=== PATIENT | female | born 1930 | race African-American/Black ===

== ENCOUNTER 2016-10-12 13:36 | Emergency (ER) | payer MEDICARE, OTHER ==
[~2016-10-12] VITALS: Ht 167.6 cm; Wt 64.5 kg
[~2016-10-12 13:36] MED LIST: ACET-784 PO; AMLO-512 PO; ASPI81TA2 PO; CARB1TAB14 PO; CHOL200016 PO; CYAN500 PO; DOCU250C91 PO; DOCU283E PR; GABA-531 PO; MOM30 PO; MULT-711 PO; NEBI5 PO; ONDA4TAB4 PO; PANT40TA PO; SENN8.6T90 PO; ZOLP5TAB2 PO
[2016-10-12] MEDS ORDERED: BARIUM SULFATE 0.1% SUSPENSION 450 ML BOTTLE PO ONE (15:00)
[2016-10-12 15:11] LABS: BASOPHILS % (AUTO) 0.4 % (0.0-2.0); EOSINOPHILS % (AUTO) 0.9 % (1.0-6.0); HEMATOCRIT 30.3 % (36-46); HEMOGLOBIN 9.6 g/dL (12.0-16.0); LYMPHOCYTES # (AUTO) 1.5 K/uL (1.0-4.8); LYMPHOCYTES % (AUTO) 18.5 % (22.0-44.0); MEAN CORPUSCULAR HEMOGLOBIN 29.5 pg (26.0-34.0); MEAN CORPUSCULAR HGB CONC 31.8 G/dL (31.0-37.0); MEAN CORPUSCULAR VOLUME 93 fL (80-100); MONOCYTES # (AUTO) 0.5 K/uL (0.1-1.0); MONOCYTES % (AUTO) 6.1 % (2.0-9.0); NEUTROPHILS # (AUTO) 5.8 K/uL (1.8-7.7); NEUTROPHILS % (AUTO) 74.1 % (40.0-70.0); PLATELET COUNT (AUTO) 211 K/uL (150-450); RED BLOOD CELL COUNT(AUTO) 3.27 MIL/uL (4.00-5.20); RED CELL DISTRIBUTION WIDTH 17.8 % (11.5-14.5); WHITE BLOOD COUNT (AUTO) 7.9 K/uL (4.5-11.0)
[2016-10-12 15:29] LABS: PROTHROMBIN TIME 10.7 SEC (9.4-11.6)
[2016-10-12 15:31] LABS: ANION GAP 2 mmol/L (8-16); CALCIUM, TOTAL 8.7 mg/dL (8.8-10.5); CARBON DIOXIDE 28 mmol/L (22-29); CHLORIDE 104 mmol/L (98-107); CREATININE 1.79 mg/dL (0.60-1.30); GLOMERULAR FILTR. RATE CALC 33 mL/min (>60); POTASSIUM 4.6 mmol/L (3.5-5.1); SODIUM SERUM 134 mmol/L (136-145); UREA NITROGEN, BLOOD 34 mg/dL (7-18)
[2016-10-12 15:35] LABS: ALBUMIN 3.4 g/dL (3.4-5.0); AMYLASE 79 U/L (25-115); ASPARTATE AMINOTRANSFERASE 15 U/L (15-37); BILIRUBIN,TOTAL 0.5 mg/dL (0.1-1.0); CREATINE KINASE, TOTAL 26 U/L (26-192); TOTAL PROTEIN, SERUM 7.1 g/dL (6.4-8.2)
[2016-10-12 15:58] LABS: RBC MORPHOLOGY COMMENT ABNORMAL RBC MORPH
[2016-10-12 16:17] LABS: ALANINE AMINOTRANSFERASE 7 U/L (12-78)
[2016-10-12 19:22] LABS: APPEARANCE,URINE CLEAR (CLEAR); GLUCOSE, URINE (UA) NEGATIVE (NEGATIVE); KETONES,URINE NEGATIVE (NEGATIVE); LEUKOCYTE ESTERASE ,URINE NEGATIVE (NEGATIVE); OCCULT BLOOD,URINE NEGATIVE (NEGATIVE); PH,URINE 5.5 (5.0-8.0); PROTEIN,URINE NEGATIVE (NEGATIVE)
[2016-10-12 19:26] LABS: ADD UA MICROSCOPIC NO
[2016-10-12 20:50] VITALS: BP 134/71
== END 2016-10-12 21:07 | disposition home or self-care (01) ==
LOC: EMS 13:39
DX: K43.9 Ventral hernia without obstruction or gangrene (principal); I10 Essential (primary) hypertension; Z88.0 Allergy status to penicillin; Z88.5 Allergy status to narcotic agent; Z79.82 Long term (current) use of aspirin
CPT/HCPCS: 74176; 93005; 99285

== ENCOUNTER 2016-10-21 10:32 | Inpatient (IN) | payer MEDICARE, OTHER ==
[~2016-10-21] VITALS: Ht 154.9 cm; Wt 67.4 kg
[2016-10-21 10:47] LABS: BASOPHILS % (AUTO) 0.4 % (0.0-2.0); EOSINOPHILS % (AUTO) 1.4 % (1.0-6.0); HEMATOCRIT 28.5 % (36-46); HEMOGLOBIN 9.3 g/dL (12.0-16.0); LYMPHOCYTES # (AUTO) 1.6 K/uL (1.0-4.8); LYMPHOCYTES % (AUTO) 27.4 % (22.0-44.0); MEAN CORPUSCULAR HEMOGLOBIN 29.8 pg (26.0-34.0); MEAN CORPUSCULAR HGB CONC 32.4 G/dL (31.0-37.0); MEAN CORPUSCULAR VOLUME 92 fL (80-100); MONOCYTES # (AUTO) 0.4 K/uL (0.1-1.0); MONOCYTES % (AUTO) 6.7 % (2.0-9.0); NEUTROPHILS # (AUTO) 3.8 K/uL (1.8-7.7); NEUTROPHILS % (AUTO) 64.1 % (40.0-70.0); PLATELET COUNT (AUTO) 217 K/uL (150-450); RED CELL DISTRIBUTION WIDTH 17.6 % (11.5-14.5); WHITE BLOOD COUNT (AUTO) 5.9 K/uL (4.5-11.0)
[2016-10-21 10:48] LABS: RBC MORPHOLOGY COMMENT ABNORMAL RBC MORPH
[2016-10-21] MEDS ORDERED: IOVERSOL 350 MG/ML 100 ML VIAL ONE (10:51)
[2016-10-21] MEDS ORDERED: SODIUM CHLORIDE 0.9% 100 ML ONE (10:51)
[2016-10-21 10:53] LABS: ANION GAP 9 mmol/L (8-16); CALCIUM, TOTAL 9.2 mg/dL (8.8-10.5); CARBON DIOXIDE 27 mmol/L (22-29); CHLORIDE 108 mmol/L (98-107); CREATININE 1.79 mg/dL (0.60-1.30); GLOMERULAR FILTR. RATE CALC 33 mL/min (>60); POTASSIUM 5.2 mmol/L (3.5-5.1); SODIUM SERUM 144 mmol/L (136-145); UREA NITROGEN, BLOOD 46 mg/dL (7-18)
[2016-10-21 10:59] LABS: PROTHROMBIN TIME 10.7 SEC (9.4-11.6)
[2016-10-21 11:00] LABS: ALANINE AMINOTRANSFERASE 7 U/L (12-78); ALBUMIN 3.6 g/dL (3.4-5.0); ASPARTATE AMINOTRANSFERASE 16 U/L (15-37); BILIRUBIN,TOTAL 0.6 mg/dL (0.1-1.0); CREATINE KINASE, TOTAL 24 U/L (26-192); TOTAL PROTEIN, SERUM 7.5 g/dL (6.4-8.2)
[2016-10-21 12:17] LABS: GLUCOSE,POINT OF CARE 55 MG/DL (70-110)
[2016-10-21 12:17] LABS: GLUCOSE, URINE (UA) NEGATIVE (NEGATIVE); KETONES,URINE NEGATIVE (NEGATIVE); LEUKOCYTE ESTERASE ,URINE SMALL (NEGATIVE); OCCULT BLOOD,URINE MODERATE (NEGATIVE); PH,URINE 5.5 (5.0-8.0); PROTEIN,URINE NEGATIVE (NEGATIVE)
[2016-10-21 12:18] LABS: ADD UA MICROSCOPIC YES; APPEARANCE,URINE HAZY (CLEAR)
[2016-10-21 12:20] LABS: SQUAMOUS EPITHELIAL CELL,UR Few /LPF (None Seen)
[2016-10-21] MEDS ORDERED: ONDANSETRON HCL 4 MG/2 ML VIAL IVP PRN (12:30)
[2016-10-21] MEDS ORDERED: ACETAMINOPHEN 325 MG TABLET PO PRN ×2 (12:30→13:45)
[2016-10-21] MEDS ORDERED: ASPIRIN 81 MG CHEWABLE TABLET PO ONE (12:30)
[2016-10-21 13:17] LABS: GLUCOSE,POINT OF CARE 84 MG/DL (70-110)
[2016-10-21] MEDS ORDERED: ONDANSETRON HCL 4 MG TABLET PO PRN (13:45)
[2016-10-21] MEDS ORDERED: ZOLPIDEM TARTRATE 5 MG TABLET PO PRN (13:45)
[2016-10-21] MEDS ORDERED: DOCUSATE SODIUM 283 MG/5 ML MINI-ENEMA PR PRN (13:45)
[2016-10-21] MEDS ORDERED: MAGNESIUM HYDROXIDE SUSPENSION 30 ML UDCUP PO PRN (13:45)
[2016-10-21 15:02] LABS: GLUCOSE,POINT OF CARE 71 MG/DL (70-110)
[2016-10-21] MEDS: CARBIDOPA/LEVODOPA 25-100 MG TABLET PO SCH ×2 (17:19→21:57)
[2016-10-21 18:51] VITALS: BP 118/71
[2016-10-21 19:50] VITALS: BP 120/70
[2016-10-21] MEDS: SENNA 187 MG TABLET PO SCH (21:51)
[2016-10-21] MEDS: DOCUSATE SODIUM 250 MG CAPSULE PO SCH (21:54)
[2016-10-21] MEDS: CHOLECALCIFEROL (VIT D3) 2,000 UNITS TABLET PO SCH (21:56)
[2016-10-21] MEDS: GABAPENTIN 300 MG CAPSULE PO SCH (21:56)
[2016-10-21] MEDS: HEPARIN SODIUM,PORCINE 5,000 UNITS/ML VIAL SQ SCH (21:58)
[2016-10-22] VITALS (7 sets, daily range): BP systolic 111–140; BP diastolic 62–77
[2016-10-22 06:40] LABS: BASOPHILS # (AUTO) 0.02 K/uL (0.00-0.20); BASOPHILS % (AUTO) 0.3 % (0.0-2.0); EOSINOPHILS # (AUTO) 0.11 K/uL (0.00-0.70); EOSINOPHILS % (AUTO) 1.84 % (1.0-6.0); HEMATOCRIT 26.5 % (36-46); HEMOGLOBIN 8.6 g/dL (12.0-16.0); MEAN CORPUSCULAR HEMOGLOBIN 30.2 pg (26.0-34.0); MEAN CORPUSCULAR HGB CONC 32.4 G/dL (31.0-37.0); MEAN CORPUSCULAR VOLUME 93 fL (80-100); MONOCYTES # (AUTO) 0.4 K/uL (0.1-1.0); MONOCYTES % (AUTO) 6.1 % (2.0-9.0); NEUTROPHILS # (AUTO) 4.3 K/uL (1.8-7.7); NEUTROPHILS % (AUTO) 73.8 % (40.0-70.0); PLATELET COUNT (AUTO) 203 K/uL (150-450); RED BLOOD CELL COUNT(AUTO) 2.84 MIL/uL (4.00-5.20); RED CELL DISTRIBUTION WIDTH 17.9 % (11.5-14.5); WHITE BLOOD COUNT (AUTO) 5.8 K/uL (4.5-11.0)
[2016-10-22 07:14] LABS: ANION GAP 8 mmol/L (8-16); CALCIUM, TOTAL 8.7 mg/dL (8.8-10.5); CARBON DIOXIDE 27 mmol/L (22-29); CHLORIDE 108 mmol/L (98-107); CHOL/HDL RATIO 3.8 (3.9-5.7); CREATINE KINASE, TOTAL 29 U/L (26-192); CREATININE 1.72 mg/dL (0.60-1.30); GLOMERULAR FILTR. RATE CALC 34 mL/min (>60); PHOSPHORUS 4.3 mg/dL (2.5-4.9); POTASSIUM 4.9 mmol/L (3.5-5.1); SODIUM SERUM 143 mmol/L (136-145); UREA NITROGEN, BLOOD 46 mg/dL (7-18)
[2016-10-22 08:43] LABS: HEMOGLOBIN A1C < 3.6 % (4.5-6.2)
[2016-10-22] MEDS: CHOLECALCIFEROL (VIT D3) 2,000 UNITS TABLET PO SCH ×2 (08:48→20:31)
[2016-10-22] MEDS: PANTOPRAZOLE SODIUM 40 MG DR TABLET PO SCH (08:48)
[2016-10-22] MEDS: DOCUSATE SODIUM 250 MG CAPSULE PO SCH ×2 (08:48→20:28)
[2016-10-22] MEDS: MULTIVITAMINS, THERAPEUTIC TABLET PO SCH (08:48)
[2016-10-22] MEDS: ASPIRIN 81 MG CHEWABLE TABLET PO SCH (08:48)
[2016-10-22] MEDS: CYANOCOBALAMIN 500 MCG TABLET PO SCH (08:49)
[2016-10-22] MEDS: CARBIDOPA/LEVODOPA 25-100 MG TABLET PO SCH ×4 (08:49→20:29)
[2016-10-22] MEDS: NEBIVOLOL HCL 5 MG TABLET PO SCH (08:49)
[2016-10-22] MEDS: HEPARIN SODIUM,PORCINE 5,000 UNITS/ML VIAL SQ SCH ×2 (08:49→20:30)
[2016-10-22 09:16] LABS: RBC MORPHOLOGY COMMENT ABNORMAL RBC MORPH
[2016-10-22 11:35] LABS: VITAMIN B12 LEVEL > 2000 pg/mL (211-911)
[2016-10-22] MEDS: LEVOFLOXACIN 250 MG/D5% WATER 50 ML IV SCH (13:17)
[2016-10-22] MEDS: GABAPENTIN 300 MG CAPSULE PO SCH (20:29)
[2016-10-22] MEDS: SENNA 187 MG TABLET PO SCH (20:29)
[2016-10-23 00:19] VITALS: BP 117/86
[2016-10-23 04:11] VITALS: BP 115/85
[2016-10-23 07:37] VITALS: BP 142/81
[2016-10-23 08:05] LABS: BASOPHILS % (AUTO) 0.4 % (0.0-2.0); EOSINOPHILS % (AUTO) 1.7 % (1.0-6.0); HEMATOCRIT 27.3 % (36-46); HEMOGLOBIN 8.8 g/dL (12.0-16.0); LYMPHOCYTES # (AUTO) 0.9 K/uL (1.0-4.8); LYMPHOCYTES % (AUTO) 14.4 % (22.0-44.0); MEAN CORPUSCULAR HEMOGLOBIN 29.9 pg (26.0-34.0); MEAN CORPUSCULAR HGB CONC 32.1 G/dL (31.0-37.0); MEAN CORPUSCULAR VOLUME 93 fL (80-100); MONOCYTES # (AUTO) 0.4 K/uL (0.1-1.0); MONOCYTES % (AUTO) 5.5 % (2.0-9.0); NEUTROPHILS # (AUTO) 5.1 K/uL (1.8-7.7); PLATELET COUNT (AUTO) 204 K/uL (150-450); RED BLOOD CELL COUNT(AUTO) 2.93 MIL/uL (4.00-5.20); WHITE BLOOD COUNT (AUTO) 6.6 K/uL (4.5-11.0)
[2016-10-23 08:16] LABS: CALCIUM, TOTAL 8.9 mg/dL (8.8-10.5); CREATININE 1.66 mg/dL (0.60-1.30); POTASSIUM 4.9 mmol/L (3.5-5.1)
[2016-10-23] MEDS: LEVOFLOXACIN 250 MG/D5% WATER 50 ML IV SCH (08:33)
[2016-10-23] MEDS: HEPARIN SODIUM,PORCINE 5,000 UNITS/ML VIAL SQ SCH ×2 (08:34→21:06)
[2016-10-23] MEDS: CHOLECALCIFEROL (VIT D3) 2,000 UNITS TABLET PO SCH ×2 (08:34→21:05)
[2016-10-23] MEDS: PANTOPRAZOLE SODIUM 40 MG DR TABLET PO SCH (08:34)
[2016-10-23] MEDS: DOCUSATE SODIUM 250 MG CAPSULE PO SCH ×2 (08:34→21:06)
[2016-10-23] MEDS: NEBIVOLOL HCL 5 MG TABLET PO SCH (08:34)
[2016-10-23] MEDS: CYANOCOBALAMIN 500 MCG TABLET PO SCH (08:34)
[2016-10-23] MEDS: MULTIVITAMINS, THERAPEUTIC TABLET PO SCH (08:34)
[2016-10-23] MEDS: CARBIDOPA/LEVODOPA 25-100 MG TABLET PO SCH ×4 (08:34→21:06)
[2016-10-23] MEDS: ASPIRIN 81 MG CHEWABLE TABLET PO SCH (09:00)
[2016-10-23 11:06] LABS: RBC MORPHOLOGY COMMENT ABNORMAL RBC MORPH
[2016-10-23 11:20] VITALS: BP 132/77
[2016-10-23] MEDS ORDERED: 0.9% SODIUM CHLORIDE 10 ML SYRINGE IVP PRN (15:45)
[2016-10-23 15:57] VITALS: BP 125/71
[2016-10-23] MEDS: EPOETIN ALFA 10,000 UNITS/ML VIAL SQ SCH (17:28)
[2016-10-23 20:30] VITALS: BP 111/69
[2016-10-23] MEDS: SENNA 187 MG TABLET PO SCH (21:05)
[2016-10-23] MEDS: GABAPENTIN 300 MG CAPSULE PO SCH (21:05)
[2016-10-24 00:28] VITALS: BP 115/66
[2016-10-24 04:48] VITALS: BP 105/62
[2016-10-24 07:34] VITALS: BP 126/66
[2016-10-24 07:43] LABS: BASOPHILS % (AUTO) 0.7 % (0.0-2.0); HEMATOCRIT 25.9 % (36-46); HEMOGLOBIN 8.4 g/dL (12.0-16.0); LYMPHOCYTES # (AUTO) 1.2 K/uL (1.0-4.8); LYMPHOCYTES % (AUTO) 16.7 % (22.0-44.0); MEAN CORPUSCULAR HGB CONC 32.5 G/dL (31.0-37.0); MEAN CORPUSCULAR VOLUME 92 fL (80-100); MONOCYTES # (AUTO) 0.4 K/uL (0.1-1.0); MONOCYTES % (AUTO) 5.1 % (2.0-9.0); NEUTROPHILS # (AUTO) 5.5 K/uL (1.8-7.7); NEUTROPHILS % (AUTO) 75.5 % (40.0-70.0); RED CELL DISTRIBUTION WIDTH 18.3 % (11.5-14.5); WHITE BLOOD COUNT (AUTO) 7.3 K/uL (4.5-11.0)
[2016-10-24 07:53] LABS: PLATELET COUNT (AUTO) 203 K/uL (150-450)
[2016-10-24 08:06] LABS: CALCIUM, TOTAL 8.9 mg/dL (8.8-10.5); CREATININE 1.95 mg/dL (0.60-1.30); MAGNESIUM 2.7 mg/dL (1.80-2.40); PHOSPHORUS 4.9 mg/dL (2.5-4.9); POTASSIUM 5.4 mmol/L (3.5-5.1)
[2016-10-24 08:44] LABS: RBC MORPHOLOGY COMMENT ABNORMAL RBC MORPH
[2016-10-24] MEDS ORDERED: SODIUM POLYSTYRENE SULFONATE 15 GM/60 ML SUSPENSION BOTTLE PO PRN (08:45)
[2016-10-24] MEDS: SODIUM CHLORIDE 0.9% 1,000 ML IV SCH (09:35)
[2016-10-24] MEDS: HEPARIN SODIUM,PORCINE 5,000 UNITS/ML VIAL SQ SCH ×2 (09:35→21:08)
[2016-10-24] MEDS: MULTIVITAMINS, THERAPEUTIC TABLET PO SCH (09:35)
[2016-10-24] MEDS: LEVOFLOXACIN 250 MG/D5% WATER 50 ML IV SCH (09:35)
[2016-10-24] MEDS: PANTOPRAZOLE SODIUM 40 MG DR TABLET PO SCH (09:36)
[2016-10-24] MEDS: DOCUSATE SODIUM 250 MG CAPSULE PO SCH ×2 (09:36→21:08)
[2016-10-24] MEDS: ASPIRIN 81 MG CHEWABLE TABLET PO SCH (09:36)
[2016-10-24] MEDS: CYANOCOBALAMIN 500 MCG TABLET PO SCH (09:37)
[2016-10-24] MEDS: CARBIDOPA/LEVODOPA 25-100 MG TABLET PO SCH ×4 (09:37→21:08)
[2016-10-24] MEDS: CHOLECALCIFEROL (VIT D3) 2,000 UNITS TABLET PO SCH ×2 (09:37→21:07)
[2016-10-24] MEDS: NEBIVOLOL HCL 5 MG TABLET PO SCH (09:38)
[2016-10-24] MEDS: IPRATROPIUM BROMIDE 0.5 MG/2.5 ML NEB SOLUTION NEB PRN (10:17)
[2016-10-24] MEDS: ALBUTEROL SULFATE 2.5 MG/0.5 ML NEB SOLUTION NEB PRN (10:17)
[2016-10-24 11:09] VITALS: BP 108/76
[2016-10-24 16:04] VITALS: BP 116/67
[2016-10-24 16:09] LABS: CALCIUM, TOTAL 8.6 mg/dL (8.8-10.5); CREATININE 2.05 mg/dL (0.60-1.30); POTASSIUM 5.4 mmol/L (3.5-5.1)
[2016-10-24 19:55] VITALS: BP 96/51
[2016-10-24] MEDS: GABAPENTIN 300 MG CAPSULE PO SCH (21:07)
[2016-10-24] MEDS: SENNA 187 MG TABLET PO SCH (21:08)
[2016-10-25 00:17] VITALS: BP 135/62
[2016-10-25] MEDS: SODIUM CHLORIDE 0.9% 1,000 ML IV SCH ×2 (00:44→11:10)
[2016-10-25 04:21] VITALS: BP 108/61
[2016-10-25] MEDS ORDERED: LEVO250T2 PO (07:08)
[2016-10-25 07:12] LABS: CALCIUM, TOTAL 8.6 mg/dL (8.8-10.5); CREATININE 2.07 mg/dL (0.60-1.30); POTASSIUM 5.3 mmol/L (3.5-5.1)
[2016-10-25 07:15] VITALS: BP 135/76
[2016-10-25] MEDS: LEVOFLOXACIN 250 MG/D5% WATER 50 ML IV SCH (09:04)
[2016-10-25] MEDS: DOCUSATE SODIUM 250 MG CAPSULE PO SCH (09:07)
[2016-10-25] MEDS: PANTOPRAZOLE SODIUM 40 MG DR TABLET PO SCH (09:07)
[2016-10-25] MEDS: ASPIRIN 81 MG CHEWABLE TABLET PO SCH (09:07)
[2016-10-25] MEDS: MULTIVITAMINS, THERAPEUTIC TABLET PO SCH (09:07)
[2016-10-25] MEDS: NEBIVOLOL HCL 5 MG TABLET PO SCH (09:08)
[2016-10-25] MEDS: CYANOCOBALAMIN 500 MCG TABLET PO SCH (09:08)
[2016-10-25] MEDS: HEPARIN SODIUM,PORCINE 5,000 UNITS/ML VIAL SQ SCH (09:11)
[2016-10-25] MEDS: CHOLECALCIFEROL (VIT D3) 2,000 UNITS TABLET PO SCH (09:11)
[2016-10-25] MEDS: EPOETIN ALFA 10,000 UNITS/ML VIAL SQ SCH (09:12)
[2016-10-25] MEDS: CARBIDOPA/LEVODOPA 25-100 MG TABLET PO SCH ×3 (09:13→16:00)
[2016-10-25 11:16] VITALS: BP 127/64
[2016-10-25] MEDS: IPRATROPIUM BROMIDE 0.5 MG/2.5 ML NEB SOLUTION NEB PRN (11:16)
[2016-10-25] MEDS: ALBUTEROL SULFATE 2.5 MG/0.5 ML NEB SOLUTION NEB PRN (11:16)
[2016-10-25 16:06] VITALS: BP 107/83
== END 2016-10-25 16:50 | DRG 69 ==
LOC: EMS 10:34 → 5S 16:44
PROVIDERS: ADMIT Internal Medicine Geriatric Medicine; ATTEND Internal Medicine Geriatric Medicine
DX: G45.9 Transient cerebral ischemic attack, unspecified (principal); E46 Unspecified protein-calorie malnutrition; N39.0 Urinary tract infection, site not specified; I69.351 Hemiplegia and hemiparesis following cerebral infarction affecting right dominant side; N17.9 Acute kidney failure, unspecified; N18.3 Chronic kidney disease, stage 3 (moderate); I12.9 Hypertensive chronic kidney disease with stage 1 through stage 4 chronic kidney disease, or unspecified chronic kidney disease; D63.1 Anemia in chronic kidney disease; I25.10 Atherosclerotic heart disease of native coronary artery without angina pectoris; M19.90 Unspecified osteoarthritis, unspecified site; G20 Parkinson's disease; E55.9 Vitamin D deficiency, unspecified; E02 Subclinical iodine-deficiency hypothyroidism; E87.5 Hyperkalemia; I73.9 Peripheral vascular disease, unspecified; I69.320 Aphasia following cerebral infarction; R53.81 Other malaise; Z88.0 Allergy status to penicillin; Z88.5 Allergy status to narcotic agent; Z79.899 Other long term (current) drug therapy; Z79.82 Long term (current) use of aspirin; Z96.649 Presence of unspecified artificial hip joint; Z96.659 Presence of unspecified artificial knee joint; Z95.5 Presence of coronary angioplasty implant and graft; Z68.28 Body mass index [BMI] 28.0-28.9, adult; Z87.81 Personal history of (healed) traumatic fracture; Z86.718 Personal history of other venous thrombosis and embolism; Z85.42 Personal history of malignant neoplasm of other parts of uterus; Z82.49 Family history of ischemic heart disease and other diseases of the circulatory system
CPT/HCPCS: 51702; 70496; 70551; 76770; 82306; 82570; 82607; 82746; 82962; 83036; 83540; 83550; 83735; 84100; 84156; 84300; 84439; 84443; 84540; 86592; 87086; 92526; 92610; 93005; 93306; 94060; 94640; 97163; 97166; 97530; 97535; 99291; J0885; J1644; J1956; J7030; J7050

== ENCOUNTER 2016-11-04 06:32 | Inpatient (IN) | payer MEDICARE, OTHER ==
[~2016-11-04] VITALS: Ht 152.4 cm; Wt 76.1 kg
[2016-11-04] VITALS (9 sets, daily range): BP systolic 78–115; BP diastolic 45–72
[~2016-11-04 06:32] MED LIST changes: +LEVO250T2 PO; -ZOLP5TAB2 PO
[2016-11-04 06:52] LABS: GLUCOSE,POINT OF CARE 90 MG/DL (70-110)
[2016-11-04] MEDS ORDERED: AMIN30LI24 PO (06:52)
[2016-11-04] MEDS ORDERED: ASCO500T24 PO (06:52)
[2016-11-04] MEDS ORDERED: SODIUM CHLORIDE 0.9% 1,000 ML IV ONE ×2 (07:00→10:15)
[2016-11-04 07:44] LABS: BASOPHILS # (AUTO) 0.01 K/uL (0.00-0.20); BASOPHILS % (AUTO) 0.2 % (0.0-2.0); EOSINOPHILS # (AUTO) 0.02 K/uL (0.00-0.70); EOSINOPHILS % (AUTO) 0.23 % (1.0-6.0); HEMATOCRIT 25.2 % (36-46); HEMOGLOBIN 8.2 g/dL (12.0-16.0); LYMPHOCYTES # (AUTO) 0.5 K/uL (1.0-4.8); LYMPHOCYTES % (AUTO) 6.7 % (22.0-44.0); MEAN CORPUSCULAR HEMOGLOBIN 30.3 pg (26.0-34.0); MEAN CORPUSCULAR HGB CONC 32.4 G/dL (31.0-37.0); MEAN CORPUSCULAR VOLUME 94 fL (80-100); MONOCYTES # (AUTO) 0.4 K/uL (0.1-1.0); MONOCYTES % (AUTO) 4.7 % (2.0-9.0); PLATELET COUNT (AUTO) 209 K/uL (150-450); RED BLOOD CELL COUNT(AUTO) 2.69 MIL/uL (4.00-5.20); RED CELL DISTRIBUTION WIDTH 19.5 % (11.5-14.5); WHITE BLOOD COUNT (AUTO) 7.9 K/uL (4.5-11.0)
[2016-11-04] MEDS ORDERED: CefTAZidime PENTAHYDRATE 1 GM in DEXTROSE 5%-WATER 50 ML IV ONE (07:45)
[2016-11-04] MEDS ORDERED: LEVOFLOXACIN 500 MG/D5% WATER 100 ML IV ONE (07:45)
[2016-11-04 07:48] LABS: NEUTROPHILS % (AUTO) 88.2 % (40.0-70.0); RBC MORPHOLOGY COMMENT ABNORMAL RBC MORPH
[2016-11-04 08:04] LABS: ALANINE AMINOTRANSFERASE 9 U/L (12-78); ALBUMIN 3.1 g/dL (3.4-5.0); ANION GAP 13 mmol/L (8-16); ASPARTATE AMINOTRANSFERASE 19 U/L (15-37); BILIRUBIN,TOTAL 0.5 mg/dL (0.1-1.0); CALCIUM, TOTAL 9.1 mg/dL (8.8-10.5); CARBON DIOXIDE 23 mmol/L (22-29); CHLORIDE 103 mmol/L (98-107); CREATINE KINASE, TOTAL 40 U/L (26-192); GLOMERULAR FILTR. RATE CALC 16 mL/min (>60); PROTHROMBIN TIME 10.3 SEC (9.4-11.6); SODIUM SERUM 139 mmol/L (136-145); TOTAL PROTEIN, SERUM 7.4 g/dL (6.4-8.2)
[2016-11-04 08:05] LABS: APPEARANCE,URINE CLOUDY (CLEAR); GLUCOSE, URINE (UA) NEGATIVE (NEGATIVE); KETONES,URINE NEGATIVE (NEGATIVE); LEUKOCYTE ESTERASE ,URINE MODERATE (NEGATIVE); OCCULT BLOOD,URINE NEGATIVE (NEGATIVE); PROTEIN,URINE NEGATIVE (NEGATIVE)
[2016-11-04 08:07] LABS: ADD UA MICROSCOPIC YES
[2016-11-04 08:09] LABS: RBC,URINE 0-2 /HPF (0-2); SQUAMOUS EPITHELIAL CELL,UR Moderate /LPF (None Seen)
[2016-11-04 08:13] LABS: TROPONIN I < 0.02 ng/mL (0.00-0.05)
[2016-11-04 08:17] LABS: UREA NITROGEN, BLOOD 110 mg/dL (7-18)
[2016-11-04 08:30] LABS: AMMONIA 10 umol/L (11-32)
[2016-11-04] MEDS ORDERED: CALCIUM GLUCONATE 1,000 MG in DEXTROSE 5%-WATER 50 ML IV ONE (08:30)
[2016-11-04] MEDS ORDERED: DEXTROSE 50%-WATER 25 GM/50 ML SYRINGE IVP ONE (08:30)
[2016-11-04] MEDS ORDERED: INSULIN REGULAR, HUMAN 100 UNITS/ML IVP ONE (08:30)
[2016-11-04] MEDS ORDERED: SODIUM BICARBONATE [ADULT] 8.4% 50 MEQ/50 ML SYRINGE IVP ONE (08:30)
[2016-11-04] MEDS ORDERED: ONDANSETRON HCL 4 MG/2 ML VIAL IVP PRN (08:45)
[2016-11-04] MEDS ORDERED: HEPARIN SODIUM,PORCINE 5,000 UNITS/ML VIAL SQ SCH (08:45)
[2016-11-04] MEDS ORDERED: ZOLPIDEM TARTRATE 5 MG TABLET PO PRN (08:45)
[2016-11-04] MEDS ORDERED: IPRATROPIUM BROMIDE 0.5 MG/2.5 ML NEB SOLUTION NEB PRN (08:45)
[2016-11-04] MEDS ORDERED: ALBUTEROL SULFATE 2.5 MG/0.5 ML NEB SOLUTION NEB PRN (08:45)
[2016-11-04] MEDS ORDERED: BISACODYL 10 MG RECTAL RECTAL SUPPOSITORY PR PRN (08:45)
[2016-11-04] MEDS ORDERED: MAGNESIUM HYDROXIDE SUSPENSION 30 ML UDCUP PO PRN (08:45)
[2016-11-04] MEDS: PANTOPRAZOLE SODIUM 40 MG/VIAL IVP SCH (09:16)
[2016-11-04] MEDS: HEPARIN SODIUM,PORCINE 5,000 UNITS/ML VIAL SQ SCH ×2 (09:18→20:43)
[2016-11-04 09:22] LABS: GLUCOSE,POINT OF CARE 100 MG/DL (70-110)
[2016-11-04] MEDS ORDERED: *CLINICAL-LEVOFLOXACIN IVPB DOSING CLINICAL ONE ×2 (11:30)
[2016-11-04] MEDS ORDERED: SODIUM CHLORIDE 0.45% 1,000 ML IV SCH (11:30)
[2016-11-04 14:25] LABS: CALCIUM, TOTAL 8.8 mg/dL (8.8-10.5); CREATININE 3.13 mg/dL (0.60-1.30); MAGNESIUM 2.8 mg/dL (1.80-2.40); PHOSPHORUS 5.3 mg/dL (2.5-4.9); POTASSIUM 5.6 mmol/L (3.5-5.1)
[2016-11-04] MEDS: SODIUM CHLORIDE 0.9% 1,000 ML IV SCH (15:42)
[2016-11-04] MEDS: MetroNIDAZOLE 250 MG/NACL 50 ML IV SCH (23:25)
[2016-11-05] VITALS (16 sets, daily range): BP systolic 97–119; BP diastolic 51–76
[2016-11-05] MEDS: MetroNIDAZOLE 250 MG/NACL 50 ML IV SCH ×4 (05:05→23:38)
[2016-11-05] MEDS ORDERED: 0.9% SODIUM CHLORIDE 10 ML SYRINGE IVP PRN (06:30)
[2016-11-05 06:59] LABS: ANION GAP 13 mmol/L (8-16); BASOPHILS # (AUTO) 0.03 K/uL (0.00-0.20); BASOPHILS % (AUTO) 0.4 % (0.0-2.0); CALCIUM, TOTAL 8.6 mg/dL (8.8-10.5); CARBON DIOXIDE 22 mmol/L (22-29); CHLORIDE 106 mmol/L (98-107); CREATINE KINASE, TOTAL 68 U/L (26-192); CREATININE 3.08 mg/dL (0.60-1.30); EOSINOPHILS # (AUTO) 0.02 K/uL (0.00-0.70); EOSINOPHILS % (AUTO) 0.24 % (1.0-6.0); GLOMERULAR FILTR. RATE CALC 17 mL/min (>60); LYMPHOCYTES # (AUTO) 0.6 K/uL (1.0-4.8); LYMPHOCYTES % (AUTO) 6.6 % (22.0-44.0); MEAN CORPUSCULAR HEMOGLOBIN 29.9 pg (26.0-34.0); MEAN CORPUSCULAR HGB CONC 31.7 G/dL (31.0-37.0); MEAN CORPUSCULAR VOLUME 94 fL (80-100); MONOCYTES # (AUTO) 0.5 K/uL (0.1-1.0); MONOCYTES % (AUTO) 5.3 % (2.0-9.0); NEUTROPHILS # (AUTO) 7.5 K/uL (1.8-7.7); PHOSPHORUS 5.4 mg/dL (2.5-4.9); PLATELET COUNT (AUTO) 203 K/uL (150-450); RED BLOOD CELL COUNT(AUTO) 2.21 MIL/uL (4.00-5.20); RED CELL DISTRIBUTION WIDTH 19.1 % (11.5-14.5); SODIUM SERUM 141 mmol/L (136-145); THYROID STIMULATING HORMONE 7.76 uIU/mL (0.36-3.74); WHITE BLOOD COUNT (AUTO) 8.6 K/uL (4.5-11.0)
[2016-11-05 07:09] LABS: POTASSIUM 6.2 mmol/L (3.5-5.1); UREA NITROGEN, BLOOD 107 mg/dL (7-18)
[2016-11-05 07:12] LABS: HEMOGLOBIN 6.6 g/dL (12.0-16.0)
[2016-11-05 07:13] LABS: HEMATOCRIT 20.8 % (36-46); NEUTROPHILS % (AUTO) 87.5 % (40.0-70.0)
[2016-11-05] MEDS ORDERED: CALCIUM GLUCONATE 100 MG/ML 10 ML IVP ONE (08:00)
[2016-11-05] MEDS ORDERED: DEXTROSE 50%-WATER 25 GM/50 ML SYRINGE IVP ONE (08:00)
[2016-11-05] MEDS ORDERED: INSULIN REGULAR, HUMAN 100 UNITS/ML IVP ONE (08:00)
[2016-11-05 08:37] LABS: HEMATOCRIT 22.3 % (36-46); HEMOGLOBIN 7.1 g/dL (12.0-16.0)
[2016-11-05] MEDS: PANTOPRAZOLE SODIUM 40 MG/VIAL IVP SCH (08:44)
[2016-11-05 10:22] LABS: VITAMIN B12 LEVEL > 2000 pg/mL (211-911)
[2016-11-05] MEDS ORDERED: SODIUM CHLORIDE 0.9% 250 ML IV ONE (11:13)
[2016-11-05] MEDS ORDERED: FUROSEMIDE 20 MG/2 ML VIAL IVP ONE (11:15)
[2016-11-05 12:54] LABS: HEMOGLOBIN A1C < 3.6 % (4.5-6.2)
[2016-11-05] MEDS: SODIUM CHLORIDE 0.9% 1,000 ML IV SCH (15:18)
[2016-11-05 20:31] LABS: HEMATOCRIT 25.3 % (36-46); HEMOGLOBIN 8.1 g/dL (12.0-16.0)
[2016-11-06] MEDS: MetroNIDAZOLE 250 MG/NACL 50 ML IV SCH ×4 (04:11→22:49)
[2016-11-06 04:47] VITALS: BP 104/66
[2016-11-06 07:23] VITALS: BP 121/69
[2016-11-06 08:38] LABS: EOSINOPHILS # (AUTO) 0.14 K/uL (0.00-0.70); HEMOGLOBIN 8.7 g/dL (12.0-16.0); LYMPHOCYTES # (AUTO) 0.8 K/uL (1.0-4.8); LYMPHOCYTES % (AUTO) 9.5 % (22.0-44.0); MEAN CORPUSCULAR HEMOGLOBIN 29.9 pg (26.0-34.0); MEAN CORPUSCULAR HGB CONC 32.3 G/dL (31.0-37.0); MEAN CORPUSCULAR VOLUME 93 fL (80-100); MONOCYTES # (AUTO) 0.4 K/uL (0.1-1.0); MONOCYTES % (AUTO) 4.7 % (2.0-9.0); NEUTROPHILS # (AUTO) 7.3 K/uL (1.8-7.7); NEUTROPHILS % (AUTO) 84.2 % (40.0-70.0); PLATELET COUNT (AUTO) 206 K/uL (150-450); RED BLOOD CELL COUNT(AUTO) 2.91 MIL/uL (4.00-5.20); RED CELL DISTRIBUTION WIDTH 17.8 % (11.5-14.5); WHITE BLOOD COUNT (AUTO) 8.7 K/uL (4.5-11.0)
[2016-11-06 09:04] LABS: CALCIUM, TOTAL 8.6 mg/dL (8.8-10.5); CREATININE 3.29 mg/dL (0.60-1.30); POTASSIUM 5.7 mmol/L (3.5-5.1)
[2016-11-06] MEDS ORDERED: SODIUM POLYSTYRENE SULFONATE 15 GM/60 ML SUSPENSION BOTTLE PO ONE (09:30)
[2016-11-06 09:35] LABS: RBC MORPHOLOGY COMMENT ABNORMAL RBC MORPH
[2016-11-06] MEDS: PANTOPRAZOLE SODIUM 40 MG/VIAL IVP SCH (09:41)
[2016-11-06] MEDS: LEVOFLOXACIN 500 MG/D5% WATER 100 ML IV SCH (09:41)
[2016-11-06 11:06] VITALS: BP 113/64
[2016-11-06] MEDS: SODIUM CHLORIDE 0.9% 1,000 ML IV SCH (11:39)
[2016-11-06 15:48] LABS: CALCIUM, TOTAL 8.6 mg/dL (8.8-10.5); CREATININE 3.25 mg/dL (0.60-1.30); POTASSIUM 5.5 mmol/L (3.5-5.1)
[2016-11-06 16:00] VITALS: BP 105/66
[2016-11-06 20:41] VITALS: BP 127/86
[2016-11-07] VITALS (8 sets, daily range): BP systolic 107–130; BP diastolic 71–85
[2016-11-07] MEDS: SODIUM CHLORIDE 0.9% 1,000 ML IV SCH (02:43)
[2016-11-07] MEDS: MetroNIDAZOLE 250 MG/NACL 50 ML IV SCH ×3 (04:16→17:30)
[2016-11-07 06:31] LABS: BASOPHILS # (AUTO) 0.01 K/uL (0.00-0.20); BASOPHILS % (AUTO) 0.2 % (0.0-2.0); EOSINOPHILS # (AUTO) 0.08 K/uL (0.00-0.70); EOSINOPHILS % (AUTO) 0.95 % (1.0-6.0); HEMOGLOBIN 8.7 g/dL (12.0-16.0); LYMPHOCYTES # (AUTO) 0.6 K/uL (1.0-4.8); LYMPHOCYTES % (AUTO) 7.3 % (22.0-44.0); MEAN CORPUSCULAR HEMOGLOBIN 29.9 pg (26.0-34.0); MEAN CORPUSCULAR HGB CONC 32.1 G/dL (31.0-37.0); MEAN CORPUSCULAR VOLUME 93 fL (80-100); MONOCYTES # (AUTO) 0.5 K/uL (0.1-1.0); MONOCYTES % (AUTO) 5.5 % (2.0-9.0); NEUTROPHILS # (AUTO) 7.6 K/uL (1.8-7.7); PLATELET COUNT (AUTO) 221 K/uL (150-450); RED CELL DISTRIBUTION WIDTH 18.3 % (11.5-14.5); WHITE BLOOD COUNT (AUTO) 8.8 K/uL (4.5-11.0)
[2016-11-07 06:50] LABS: RBC MORPHOLOGY COMMENT ABNORMAL RBC MORPH
[2016-11-07 06:58] LABS: CALCIUM, TOTAL 8.6 mg/dL (8.8-10.5); CREATININE 3.31 mg/dL (0.60-1.30); MAGNESIUM 2.7 mg/dL (1.80-2.40); POTASSIUM 4.8 mmol/L (3.5-5.1); THYROID STIMULATING HORMONE 8.64 uIU/mL (0.36-3.74); TOTAL PROTEIN, SERUM 6.3 g/dL (6.4-8.2)
[2016-11-07] MEDS: PANTOPRAZOLE SODIUM 40 MG/VIAL IVP SCH (10:55)
[2016-11-07] MEDS ORDERED: ACETAMINOPHEN 325 MG TABLET PO PRN (12:00)
[2016-11-07] MEDS ORDERED: HYDROCODONE/ACETAMINOPHEN 5-325 MG TABLET PO PRN (12:00)
[2016-11-07 13:13] LABS: APPEARANCE,UNSPUN,BODY FLUID BLOODY (CLEAR); COLOR,BODY FLUID RED (LT YELLOW)
[2016-11-08] MEDS: MetroNIDAZOLE 250 MG/NACL 50 ML IV SCH ×5 (00:23→22:04)
[2016-11-08] MEDS: SODIUM CHLORIDE 0.9% 1,000 ML IV SCH (00:24)
[2016-11-08 04:25] VITALS: BP 116/75
[2016-11-08 07:05] LABS: BASOPHILS # (AUTO) 0.02 K/uL (0.00-0.20); BASOPHILS % (AUTO) 0.2 % (0.0-2.0); EOSINOPHILS # (AUTO) 0.03 K/uL (0.00-0.70); EOSINOPHILS % (AUTO) 0.31 % (1.0-6.0); HEMATOCRIT 28.1 % (36-46); LYMPHOCYTES # (AUTO) 0.7 K/uL (1.0-4.8); LYMPHOCYTES % (AUTO) 6.6 % (22.0-44.0); MEAN CORPUSCULAR HEMOGLOBIN 29.7 pg (26.0-34.0); MEAN CORPUSCULAR HGB CONC 32.1 G/dL (31.0-37.0); MEAN CORPUSCULAR VOLUME 93 fL (80-100); MONOCYTES # (AUTO) 0.4 K/uL (0.1-1.0); NEUTROPHILS # (AUTO) 9.6 K/uL (1.8-7.7); PLATELET COUNT (AUTO) 227 K/uL (150-450); RED BLOOD CELL COUNT(AUTO) 3.03 MIL/uL (4.00-5.20); RED CELL DISTRIBUTION WIDTH 17.4 % (11.5-14.5); WHITE BLOOD COUNT (AUTO) 10.8 K/uL (4.5-11.0)
[2016-11-08 07:33] VITALS: BP 124/73
[2016-11-08 07:58] LABS: CALCIUM, TOTAL 8.8 mg/dL (8.8-10.5); CREATININE 2.97 mg/dL (0.60-1.30); MAGNESIUM 2.7 mg/dL (1.80-2.40); PHOSPHORUS 4.5 mg/dL (2.5-4.9); POTASSIUM 4.4 mmol/L (3.5-5.1)
[2016-11-08] MEDS: PANTOPRAZOLE SODIUM 40 MG/VIAL IVP SCH (09:10)
[2016-11-08] MEDS: LEVOFLOXACIN 500 MG/D5% WATER 100 ML IV SCH (09:11)
[2016-11-08 10:11] LABS: RBC MORPHOLOGY COMMENT ABNORMAL RBC MORPH
[2016-11-08 11:10] VITALS: BP 101/69
[2016-11-08] MEDS: SODIUM CHLORIDE 0.45% 1,000 ML IV SCH (11:18)
[2016-11-08 15:49] VITALS: BP 133/80
[2016-11-08 18:35] LABS: TOTAL PROTEIN,BODY FLUID,REF 3.6 g/dL
[2016-11-08 20:24] VITALS: BP 128/81
[2016-11-08 23:20] VITALS: BP 122/72
[2016-11-09 04:09] VITALS: BP 125/75
[2016-11-09] MEDS: MetroNIDAZOLE 250 MG/NACL 50 ML IV SCH ×4 (04:16→23:19)
[2016-11-09 06:39] LABS: BASOPHILS # (AUTO) 0.01 K/uL (0.00-0.20); BASOPHILS % (AUTO) 0.1 % (0.0-2.0); EOSINOPHILS # (AUTO) 0.01 K/uL (0.00-0.70); EOSINOPHILS % (AUTO) 0.11 % (1.0-6.0); HEMOGLOBIN 8.8 g/dL (12.0-16.0); LYMPHOCYTES # (AUTO) 0.5 K/uL (1.0-4.8); LYMPHOCYTES % (AUTO) 3.8 % (22.0-44.0); MEAN CORPUSCULAR HEMOGLOBIN 30.4 pg (26.0-34.0); MEAN CORPUSCULAR HGB CONC 32.5 G/dL (31.0-37.0); MEAN CORPUSCULAR VOLUME 93 fL (80-100); MONOCYTES # (AUTO) 0.6 K/uL (0.1-1.0); MONOCYTES % (AUTO) 4.3 % (2.0-9.0); NEUTROPHILS # (AUTO) 12.3 K/uL (1.8-7.7); PLATELET COUNT (AUTO) 213 K/uL (150-450); RED BLOOD CELL COUNT(AUTO) 2.89 MIL/uL (4.00-5.20); RED CELL DISTRIBUTION WIDTH 16.9 % (11.5-14.5); WHITE BLOOD COUNT (AUTO) 13.4 K/uL (4.5-11.0)
[2016-11-09 07:01] LABS: CALCIUM, TOTAL 8.6 mg/dL (8.8-10.5); CREATININE 3.01 mg/dL (0.60-1.30); MAGNESIUM 2.6 mg/dL (1.80-2.40); PHOSPHORUS 4.5 mg/dL (2.5-4.9); POTASSIUM 4.5 mmol/L (3.5-5.1)
[2016-11-09 07:13] LABS: NEUTROPHILS % (AUTO) 91.7 % (40.0-70.0); RBC MORPHOLOGY COMMENT ABNORMAL RBC MORPH
[2016-11-09 07:34] VITALS: BP 132/84
[2016-11-09] MEDS: SODIUM CHLORIDE 0.45% 1,000 ML IV SCH (09:09)
[2016-11-09] MEDS: PANTOPRAZOLE SODIUM 40 MG/VIAL IVP SCH (09:10)
[2016-11-09 11:13] VITALS: BP 122/72
[2016-11-09] MEDS ORDERED: LORazepam 0.5 MG TABLET SL PRN (15:15)
[2016-11-09 15:23] VITALS: BP 140/96
[2016-11-09 19:20] VITALS: BP 129/82
[2016-11-09] MEDS ORDERED: SCOPOLAMINE HYDROBROMIDE 1.5 MG PATCH TD SCH (21:00)
[2016-11-09 23:07] VITALS: BP 132/78
[2016-11-10 04:43] VITALS: BP 112/66
[2016-11-10] MEDS: MetroNIDAZOLE 250 MG/NACL 50 ML IV SCH ×4 (05:15→23:17)
[2016-11-10] MEDS: SODIUM CHLORIDE 0.45% 1,000 ML IV SCH ×2 (05:47→23:17)
[2016-11-10 07:14] VITALS: BP 124/62
[2016-11-10] MEDS: LEVOFLOXACIN 500 MG/D5% WATER 100 ML IV SCH (07:49)
[2016-11-10] MEDS: PANTOPRAZOLE SODIUM 40 MG/VIAL IVP SCH (07:49)
[2016-11-10] MEDS: HYDROmorphone 2 MG/ML SYRINGE IVP PRN (10:58)
[2016-11-10 11:32] VITALS: BP 102/69
[2016-11-10] MEDS ORDERED: HYDROmorphone HCL 50 MG/NS/PF 100 ML IV PRN (12:30)
[2016-11-10] MEDS: NYSTATIN 500,000 UNITS/5 ML SUSPENSION UDCUP PO SCH ×3 (14:39→19:51)
[2016-11-10 15:57] VITALS: BP 115/74
[2016-11-10 19:48] VITALS: BP 110/78
[2016-11-11 00:11] VITALS: BP 115/76
[2016-11-11 04:39] VITALS: BP 113/77
[2016-11-11] MEDS: MetroNIDAZOLE 250 MG/NACL 50 ML IV SCH (05:00)
[2016-11-11 07:42] VITALS: BP 106/73
[2016-11-11] MEDS: NYSTATIN 500,000 UNITS/5 ML SUSPENSION UDCUP PO SCH (08:14)
[2016-11-11] MEDS: PANTOPRAZOLE SODIUM 40 MG/VIAL IVP SCH (08:14)
[2016-11-11 12:33] VITALS: BP 107/69
[2016-11-11] MEDS: HYDROmorphone 2 MG/ML SYRINGE IVP PRN (12:52)
== END 2016-11-11 12:00 | disposition short-term general hospital (02) | DRG 871 ==
LOC: EMS 06:34 → 5N 10:25 → 6N 11-09 22:55
PROVIDERS: ADMIT Internal Medicine Geriatric Medicine; ATTEND Internal Medicine Geriatric Medicine
PROC: 30233N1 Transfusion of Nonautologous Red Blood Cells into Peripheral Vein, Percutaneous Approach (ICD-10-PCS; 2016-11-05)
PROC: 0W993ZZ Drainage of Right Pleural Cavity, Percutaneous Approach (ICD-10-PCS; principal; 2016-11-07)
DX: A41.9 Sepsis, unspecified organism (principal); J69.0 Pneumonitis due to inhalation of food and vomit; E43 Unspecified severe protein-calorie malnutrition; G93.40 Encephalopathy, unspecified; N17.9 Acute kidney failure, unspecified; N18.4 Chronic kidney disease, stage 4 (severe); N39.0 Urinary tract infection, site not specified; I69.351 Hemiplegia and hemiparesis following cerebral infarction affecting right dominant side; J91.0 Malignant pleural effusion; C78.00 Secondary malignant neoplasm of unspecified lung; I69.320 Aphasia following cerebral infarction; R62.7 Adult failure to thrive; E87.5 Hyperkalemia; I25.10 Atherosclerotic heart disease of native coronary artery without angina pectoris; I12.9 Hypertensive chronic kidney disease with stage 1 through stage 4 chronic kidney disease, or unspecified chronic kidney disease; D64.9 Anemia, unspecified; Z51.5 Encounter for palliative care; F03.90 Unspecified dementia, unspecified severity, without behavioral disturbance, psychotic disturbance, mood disturbance, and anxiety; C55 Malignant neoplasm of uterus, part unspecified; M19.90 Unspecified osteoarthritis, unspecified site; G20 Parkinson's disease; Z96.652 Presence of left artificial knee joint; Z96.649 Presence of unspecified artificial hip joint; Z66 Do not resuscitate; E86.0 Dehydration; I73.9 Peripheral vascular disease, unspecified; E03.9 Hypothyroidism, unspecified; E55.9 Vitamin D deficiency, unspecified; Z79.1 Long term (current) use of non-steroidal anti-inflammatories (NSAID); Z87.440 Personal history of urinary (tract) infections; Z95.5 Presence of coronary angioplasty implant and graft; Z88.5 Allergy status to narcotic agent; Z88.0 Allergy status to penicillin; Z79.899 Other long term (current) drug therapy; Z79.82 Long term (current) use of aspirin; Z87.81 Personal history of (healed) traumatic fracture; Z85.42 Personal history of malignant neoplasm of other parts of uterus; Z86.718 Personal history of other venous thrombosis and embolism; Z95.820 Peripheral vascular angioplasty status with implants and grafts; Z82.49 Family history of ischemic heart disease and other diseases of the circulatory system
CPT/HCPCS: 32555; 51702; 70450; 71250; 76942; 82271; 82306; 82465; 82570; 82607; 82746; 82945; 82962; 83036; 83615; 83735; 83986; 84100; 84132; 84155; 84156; 84157; 84300; 84439; 84443; 84540; 85014; 85018; 86850; 86900; 86901; 86920; 87015; 87040; 87070; 87081; 87086; 87101; 87205; 87324; 87449; 88108; 88341; 88342; 89051; 92526; 92610; 93005; 94640; 96365; 96366; 96368; 96375; 99285; C9113; J0610; J0713; J1170; J1644; J1815; J1940; J1956; J3490; J7030; J7050; J7060; P9016